=== PATIENT | male | born 1995 | race Caucasian/White ===

== ENCOUNTER 2021-01-27 00:10 | Emergency (ER) | payer SELFPAY ==
[~2021-01-27] VITALS: Ht 182.9 cm; Wt 68.0 kg
[2021-01-27] MEDS ORDERED: TDAP [DIPH/PERTUSSIS/TET] 0.5 ML VIAL IM ONE ×2 (00:30→00:37)
--- NOTE | 2021-01-27 00:45 | NUR ---
[facility] BIBS FOR C/O LOWER BACK PAIN S/P FALL. PATIENT STATED ON OXYCODONE FOR CHRONIC BACK PAIN. PATIENT NOTED W/ LOWER BACK ABRASION. TDAP NOT UPDATED. PATIENT IS A/O X 4, RR EVEN AND UNLABORED, NO SIGNS OF SOB NOTED. PATIENT CONNECTED TO [employer] REPRESENTATIVE AND [employer].
--- NOTE | 2021-01-27 01:02 | NUR ---
PATIENT RETURNED FROM CT
--- NOTE | 2021-01-27 02:11 | NUR ---
Patient discharged to home in stable condition. Written and verbal after care instructions given. Patient verbalizes understanding of instruction.
[2021-01-27 02:31] VITALS: BP 126/74
== END 2021-01-27 02:12 | disposition home or self-care (01) ==
LOC: ER 00:10
DX: S30.810A Abrasion of lower back and pelvis, initial encounter (principal); W01.0XXA Fall on same level from slipping, tripping and stumbling without subsequent striking against object, initial encounter; Y93.89 Activity, other specified; Y92.89 Other specified places as the place of occurrence of the external cause; Y99.8 Other external cause status
CPT/HCPCS: 72131-TC; 90715